=== PATIENT | female | born 1995 | race Caucasian/White ===

== ENCOUNTER 2020-02-21 13:41 | Emergency (ER) | payer BC, SELFPAY ==
[2020-02-21 13:42] VITALS: BP 119/77; PULSE 103; RESP 17; TEMP 36.2; O2SAT 99; BMI 18.6
--- NOTE | 2020-02-21 14:03 | CT_ITS ---
We are attempting to reach an attending provider to discuss findings. An addendum with communication details will be sent when the communication is complete. STUDY: CT ABDOMEN AND PELVIS WITH CONTRAST REASON FOR EXAM: Female, 24 years old. RLQ pain x several months, elevated WBC, nausea. No prior surgery, cancer, diabetes or known GI issues. RADIATION DOSAGE (If Supplied By Facility): CTDIvol = ( 8.74 ) mGy, DLP = ( 404.20 ) mGycm TECHNIQUE: Transaxial images were obtained from the dome of the diaphragm to the symphysis pubis without oral contrast. Oral and amp;amp; IV Gastrografin and amp;amp; 75mL Isovue-300 was administered. Sagittal and coronal images were reconstructed. Individualized dose optimization techniques were used for this CT. COMPARISON: None. FINDINGS: Lung bases are clear. Heart size is normal. The liver is unremarkable. The gallbladder is unremarkable. The spleen and pancreas are unremarkable. The adrenal glands are normal. The kidneys are unremarkable. No stones or hydronephrosis. The aorta is normal in caliber. There is marked wall thickening of the cecum and ascending colon consistent with infectious (less likely inflammatory) colitis. There is moderate pericolonic inflammatory stranding. The appendix is dilated and fluid-filled, measuring up to 1.3 cm in diameter. This is likely secondary to an ascending colitis. Terminal ileum is dilated, which may indicate a low-grade partial obstruction. However, contrast passes into the colon. Mild free fluid in the pelvis. Urinary bladder is unremarkable. Normal abdominal wall. Normal osseous structures. CT/Abdomen/Pelvis WITH Contrast IMPRESSION: 1. Findings are most consistent with infectious colitis of the ascending colon. Dilation of the appendix is likely secondary. Terminal ileal distention is consistent with colitis and may represent low grade partial obstruction. 2. Mild free fluid. Electronically Signed: Nely Bhandari MD at 16:23 EDT Tel , Service support ,
--- NOTE | 2020-02-21 14:04 | ED.DCSUM_ITS ---
History of Present Illness Chief Complaint: Abd Pain Informant: Patient Onset: Month(s) Timing: Waxes and wanes Current Severity: Moderate Maximum Severity: Moderate Narrative: Patient presents with a couple month history of right lower quadrant yuridia pain. Symptoms seem to be worsening recently. She was seen in urgent care and advised to come in for a CT scan. She thinks she may have had a fever last night but did not measure it. She had some mild nausea today. She denies diarrhea or constipation. A few weeks ago she did note some blood in her stool but that resolved after 2 days. Last menstrual cycle was normal just ended a few days ago. She denies prior abdominal surgeries. Past Medical History - Allergies and Home Meds Allergies/Adverse Reactions: Allergies No Known Allergies Allergy (Verified 02/21/20 13:41) Primary Care Physician: Care Physician,No Primary [Primary Care Provider] - Past Medical History: None Review of Systems General: Reports: Fever, Subjective Eyes: Denies: Visual changes - bilaterally ENT: Denies: Bilateral ear pain Cardiovascular: Denies: Chest pain Respiratory: Denies: Dyspnea, Cough Gastrointestinal: Reports: Abdominal pain, Nausea. Denies: Vomiting, Diarrhea, Constipation Genitourinary: Denies: Dysuria Musculoskeletal: Denies: Extremity Pain Skin: Denies: Rash Neurological: Denies: Headache Hematologic: Denies: Easy bruising, Easy bleeding Allergy: Denies: Uticaria Physical Exam Vital Signs/Narrative: Vital Signs Temp Pulse Resp BP Pulse Ox 02/21/20 13:42 97.1 F L 103 H 17 119/77 99 Inital Vital Signs reviewed: Yes General: Well nourished, Well developed Head: Normocephalic ENT: Moist mucous membranes Neck: Supple Cardiovascular: Regular rate, Regular rhythm Respiratory: No distress, CTA bilaterally Abdomen: Soft, Tender - Moderate tenderness to the right lower quadrant., Hypoactive bowel sounds. Negative for: Guarding, Rebound tenderness Skin: Normal color Neurological: Alert, Oriented x3 Psychological: Normal affect Diagnostic/Tx/Re-eval Impressions Abdomen/Pelvis CT 02/21/20 14:03 IMPRESSION: 1. Findings are most consistent with infectious colitis of the ascending colon. Dilation of the appendix is likely secondary. Terminal ileal distention is consistent with colitis and may represent low grade partial obstruction. 2. Mild free fluid. Electronically Signed: Nely Bhandari MD at 16:23 EDT Tel , Service support , ADDENDUM: 02/21/20 1711 IMPRESSION: 1. Findings are most consistent with infectious colitis of the ascending colon. Dilation of the appendix is likely secondary. Terminal ileal distention is consistent with colitis and may represent low grade partial obstruction. 2. Mild free fluid. N.B. : The above information has been verbally conveyed by Nely Bhandari MD to Lauren Severino MD, MD, on 02/21/2020 17:04:23 (ET). Electronically Signed: Nely Bhandari MD at 16:23 EDT Tel , Service support , 02/21/20 14:03 Abdomen/Pelvis WITH Contrast [CT] Stat Laboratory Results 02/21/20 02/21/20 02/21/20 14:10 14:10 14:10 WBC 12.0 H RBC 4.82 Hgb 11.5 L Hct 38.4 MCV 79.7 L MCH 23.9 L MCHC 29.9 L RDW Std Deviation 41.4 RDW Coeff of Shravan 14.6 Plt Count 409 MPV 8.6 Immature Gran % (Auto) 0.300 Neut % (Auto) 76.3 H Lymph % (Auto) 15.3 L [place] % (Auto) 7.0 Eos % (Auto) 0.8 Baso % (Auto) 0.3 Absolute Neuts (auto) 9.1 H Absolute Lymphs (auto) 1.83 Nucleated RBC % 0 Sodium 137 Potassium 3.7 Chloride 104 Carbon Dioxide 28.0 Anion Gap 5 BUN 9 Creatinine 0.79 Estim Creat Clear Calc 104.14 Est GFR (MDRD) Af Amer 114 Est GFR (MDRD) Non-Af 94 BUN/Creatinine Ratio 11.4 Glucose 105 Calcium 8.7 Total Bilirubin 0.30 Direct Bilirubin 0.12 AST 16 ALT 22 Alkaline Phosphatase 65 Total Protein 7.7 Albumin 3.2 Globulin 4.5 H Serum , Qual NEGATIVE Urine Color Urine Clarity Urine pH Ur Specific [place] Urine Protein Urine Glucose (UA) Urine Ketones Urine Occult Blood Urine Nitrite Urine Bilirubin Urine Urobilinogen Ur Leukocyte Esterase Urine RBC Urine WBC Ur Squamous Epith Cells Urine Bacteria Urine Mucus 02/21/20 14:27 WBC RBC Hgb Hct MCV MCH MCHC RDW Std Deviation RDW Coeff of Shravan Plt Count MPV Immature Gran % (Auto) Neut % (Auto) Lymph % (Auto) Cascade % (Auto) Eos % (Auto) Baso % (Auto) Absolute Neuts (auto) Absolute Lymphs (auto) Nucleated RBC % Sodium Potassium Chloride Carbon Dioxide Anion Gap BUN Creatinine Estim Creat Clear Calc Est GFR (MDRD) Af Amer Est GFR (MDRD) Non-Af BUN/Creatinine Ratio Glucose Calcium Total Bilirubin Direct Bilirubin AST ALT Alkaline Phosphatase Total Protein Albumin Globulin Serum , Qual Urine Color Yellow Urine Clarity Sl. Cloudy Urine pH 6.0 Ur Specific [place] 1.010 Urine Protein Negative Urine Glucose (UA) Normal Urine Ketones 5 H Urine Occult Blood 50 H Urine Nitrite Negative Urine Bilirubin Negative Urine Urobilinogen Normal Ur Leukocyte Esterase Negative Urine RBC 0-5 SEEN Urine WBC 0 SEEN Ur Squamous Epith Cells 0-5 SEEN Urine Bacteria 0 SEEN Urine Mucus 0 SEEN - Medical Decision Making Patient declined anything for pain while here. CT is reviewed with Dr. Rodriguez, surgery on-call. He feels that the patient likely has a first-time Crohn's exacerbation and feels this is more inflammatory than infectious. Because of the degree of inflammation he feels patient should be transferred to a facility with GI availability. I spoke with [facility] patient has been accepted by medicine there. I did recommend we go ahead and give steroids and antibiotics at this time. Cipro, Flagyl, and Solu-Medrol will be given. ED Disposition - Plan for ED Patient: Disposition: [facility] Diagnosis: Colitis Referrals: Care Physician,No Primary [Primary Care Provider] -
[2020-02-21 14:23] LABS: Absolute Lymphocyte Count 1.83 X10^3/uL (0.83-4.51); Absolute Neutrophil Count 9.1 X10^3/uL (2.0-7.7); Basophil# 0.04 X10^3/uL; Basophil% 0.3 % (0-1); Eosinophil# 0.09 X10^3/uL; Eosinophils% 0.8 % (0-5); Hematocrit 38.4 % (37-47); Hemoglobin 11.5 g/dL (12.0-15.0); Lymphocyte # 1.83 X10^3/ul (4.0); Lymphocyte % 15.3 % (19-41); Mean Corp Hgb Conc 29.9 g/dL (32-36); Mean Corpuscular Hgb 23.9 pg (27.0-32.0); Mean Corpuscular Volume 79.7 fL (81-99); Mean Platelet Vol. 8.6 fl (6.2-12.0); Monocyte# 0.84 X10^3/uL; NRBC Flagged by Analyzer 0 % (0-5); Neutrophil # 9.11 X10^3/uL (2.7-7.7); Neutrophil % 76.3 % (47-70); Platelet Count 409 K/mm3 (150-450); RBC Distribution Width CV 14.6 % (11.6-14.6); RBC Distribution Width SD 41.4 fl (35.1-43.9); Red Blood Count 4.82 M/mm3 (4.2-5.4)
[2020-02-21 14:28] LABS: Bacteria 0 SEEN /hpf (None Seen); Mucous, Urine 0 SEEN /hpf (<or=2+); White Blood Cells 0 SEEN /hpf (0-5)
[2020-02-21 14:30] LABS: Color, Urine Yellow (Yellow); Glucose, Dipstick Normal (Normal); Ketone-Dipstick 5 mg/dl (Negative); Leukocyte Esterase-Dipstick Negative /ul (Negative); Nitrite-Dipstick Negative (Negative); Occult Blood-Urine 50 /ul (Negative); Protein-Dipstick Negative (Negative); Urine Bilirubin Dipstick Negative (Negative); Urine Clarity Sl. Cloudy (Clear); Urine Urobilinogen Normal (Normal)
[2020-02-21 14:35] LABS: Red Blood Cells-Urine 0-5 SEEN /hpf (0-5); Squamous Epithelial Cells - UA 0-5 SEEN /hpf (5-10)
[2020-02-21 14:43] LABS: AST(SGOT) 16 U/L (15-37); Alanine Aminotransfer ALT/SGPT 22 U/L (13-56); Albumin, Serum 3.2 g/dL (3.2-5.0); Alkaline Phosphatase 65 U/L (45-117); Anion Gap 5 (5-15); BUN 9 mg/dL (7-18); BUN/Creat Ratio 11.4 RATIO (10-20); Bilirubin, Direct 0.12 mg/dL (0.00-0.30); Calcium,Total 8.7 mg/dL (8.5-10.1); Chloride 104 mmol/L (98-107); Creatinine, Serum 0.79 mg/dL (0.55-1.02); EST Glomerular Filtration Rate 94 mL/min (>60); Est Glom Filt Rate - Afr Amer 114 mL/min (>60); Estimated Creatinine Clearance 104.14 ml/min; Globulin 4.5 g/dL (2.2-4.2); Glucose 105 mg/dL (74-106); Potassium 3.7 mmol/L (3.5-5.1); Protein, Total 7.7 g/dL (6.4-8.2); Sodium Level 137 mmol/L (136-145)
[2020-02-21 14:59] LABS: Internal QC Validated? YES +Cl - CLEAR BKGD; Pregnancy, Serum, hCG Quali. NEGATIVE Negative
[2020-02-21 16:31] VITALS: BP 114/73; PULSE 77; RESP 16; TEMP 36.9; O2SAT 99
--- NOTE | 2020-02-21 17:56 | NURSING ---
FAXED FACESHEET AND CT TO [facility]
[2020-02-21] MEDS: Ciprofloxacin 400 MG/200 ML BAG 200 MG IV (19:15)
[2020-02-21] MEDS: MethylPREDNISolone 125 MG/2 ML Vial IV (19:16)
[2020-02-21 19:30] VITALS: RESP 16
[2020-02-21] MEDS: metroNIDAZOLE 500 MG/100 ML BAG 100 MG IV (20:20)
[2020-02-21 20:55] VITALS: BP 117/72; PULSE 75; RESP 16; O2SAT 99
[2020-02-21 21:04] VITALS: RESP 16
== END 2020-02-21 21:08 | disposition short-term general hospital (02) ==
PROVIDERS: Emergency Provider Emergency Medicine
DX: K52.9 Noninfective gastroenteritis and colitis, unspecified (principal)
CPT/HCPCS: 74177; 80048; 80076; 81001; 84703; 85025; 96365; 96367; 96375; 99284; J7050; Q9967; A4216; J0744